=== PATIENT | male | born 2000 | race Caucasian/White ===

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

== ENCOUNTER 2018-01-24 02:29 | Emergency (ER) | payer OTHER | END 2018-01-24 05:01 | disposition home or self-care (01) | LOC: FTE 02:29 | DX: R04.2 Hemoptysis (principal); F17.210 Nicotine dependence, cigarettes, uncomplicated | CPT/HCPCS: 71046; 99283-25 ==

== ENCOUNTER 2018-04-01 18:23 | Emergency (ER) | payer OTHER ==
[2018-04-01 19:23] LABS: ADD MAN DIFF? NO
[2018-04-01] MEDS: morphine 4 MG/ML VIAL IV (19:27)
[2018-04-01] MEDS: ONDANSETRON 4 MG INJ IV (19:27)
[2018-04-01] MEDS: SOD CHLORIDE 0.9% 1,000 ML IV (19:28)
[2018-04-01 19:31] LABS: WHITE BLOOD COUNT 10.2 10^3/ul (4.8-10.8)
[2018-04-01 19:31] LABS: BASOPHIL # 0.1 10^3/ul (0.0-0.1); BASOPHILS % 0.5 % (0.0-2.0); EOSINOPHILS # 0.1 10^3/ul (0.0-0.5); EOSINOPHILS % 1.4 % (0.0-7.0); HEMATOCRIT 49.5 % (42.0-52.0); HEMOGLOBIN 17.4 g/dl (14.0-18.0); LYMPHOCYTES % 19.7 % (18.0-55.0); MEAN CORPUSCULAR HEMOGLOBIN 30.6 pg (29.0-33.0); MEAN CORPUSCULAR HGB CONC 35.2 g/dl (32.0-37.0); MONOCYTE # 0.7 10^3/ul (0.3-0.9); MONOCYTES % 6.9 % (0.0-13.0); NEUTROPHIL # 7.3 10^3/ul (1.6-7.5); NEUTROPHILS % 71.2 % (30.0-74.0); PLATELET COUNT 267 10^3/UL (140-415); RED BLOOD COUNT 5.69 10^6/ul (4.70-6.10); RED CELL DISTRIBUTION WIDTH 12.2 % (11.5-14.5)
[2018-04-01 19:52] LABS: INR 0.92; PROTIME 12.5 Sec (11.9-14.9)
[2018-04-01 19:53] LABS: PARTIAL THROMBOPLASTIN TIME 26.8 Sec (23.0-35.0)
[2018-04-01] MEDS: SOD CHLORIDE 0.9% 100 ML (20:14)
[2018-04-01] MEDS: IOHEXOL 300MG/ML 150 ML BTL (20:14)
[2018-04-01 20:16] LABS: ALANINE AMINOTRANSFERASE 21 IU/L (13-69); ALKALINE PHOSPHATASE 75 IU/L (42-121); ANION GAP 15 (5-13); ASPARTATE AMINO TRANSFERASE 25 IU/L (15-46); BILIRUBIN,INDIRECT 0.5 mg/dl (0-1.1); BILIRUBIN,TOTAL 0.5 mg/dl (0.2-1.3); BLOOD UREA NITROGEN 17 mg/dl (7-20); CALCIUM 10.2 mg/dl (8.4-10.2); CARBON DIOXIDE 27 mmol/L (21-31); CHLORIDE 99 mmol/L (97-110); CREATININE 1.04 mg/dl (0.61-1.24); Estimated GFR > 60 mL/min (>60); GLUCOSE 83 mg/dl (70-220); POTASSIUM 3.6 mmol/L (3.5-5.1); SODIUM 141 mmol/L (135-144); TOTAL PROTEIN 8.3 g/dl (6.1-8.1)
[2018-04-01] MEDS: LORAZEPAM 2 MG INJ IV (20:36)
[2018-04-01 21:25] LABS: LIPASE 68 U/L (23-300)
[2018-04-02] MEDS: HYDROmorphONE 0.5 MG/0.5 ML SYG IV (00:36)
== END 2018-04-02 00:28 | disposition short-term general hospital (02) ==
LOC: E/R 04-02 00:28
DX: S39.91XA Unspecified injury of abdomen, initial encounter (principal); K92.0 Hematemesis; R10.9 Unspecified abdominal pain; W55.29XA Other contact with cow, initial encounter; Y92.9 Unspecified place or not applicable
CPT/HCPCS: 71260; 74177; 80048; 80076; 83690; 85025; 85610; 85730; 86850; 86900; 86901; 93005; 96361; 96374; 96375; 99285-25